=== PATIENT | female | born 1940 | race Caucasian/White ===

== ENCOUNTER → 2021-04-09 | Outpatient (CLI) | payer MEDICARE, OTHER ==
[~2021-04-09] MED LIST: ASCO500 PO; ASPI325 PO; ASPI81CH PO; ATEN25 PO; ATOR40TA PO; BUSP10 PO; CHOL10002 PO; CLOP75 PO; CO Q10100 MG PO; CVS COD LIVER473 ML PO; IBUP400 PO; METO25ER PO; MUPI2TC TOP; NITR.6SL SL; Norco 5-325 Ta1 EACH PO; ONDA4 PO; OXYACE5T PO
== END | disposition home or self-care (01) ==
LOC: LAB SHORT 16:24
DX: N39.0 Urinary tract infection, site not specified (principal)
CPT/HCPCS: 87086

== ENCOUNTER → 2021-05-15 | Outpatient (CLI) | payer MEDICARE, OTHER | END | disposition home or self-care (01) | LOC: LAB 19:44 → LAB SHORT 19:44 | DX: N39.0 Urinary tract infection, site not specified (principal) | CPT/HCPCS: 87086 ==

== ENCOUNTER → 2022-02-19 | Outpatient (CLI) | payer MEDICARE, OTHER | END | disposition home or self-care (01) | LOC: LAB 15:30 → LAB SHORT 15:30 | DX: N39.0 Urinary tract infection, site not specified (principal) | CPT/HCPCS: 87086 ==